=== PATIENT | female | born 1960 | race Caucasian/White ===

== ENCOUNTER 2016-12-25 20:59 | Emergency (ER) | payer OTHER ==
[~2016-12-25] VITALS: Ht 170.2 cm; Wt 58.0 kg
[~2016-12-25 20:59] MED LIST: FLUO-1 PO; MOBI15TA PO; NEUR300C PO
[2016-12-25 21:03] VITALS: BP 194/101; PULSE 88; RESP 16; TEMP 98.8; O2SAT 98
[2016-12-25] MEDS ORDERED: SIMETHICONE 125 MG CHEWABLE TAB PO ONE (21:45)
[2016-12-25] MEDS ORDERED: SODIUM CHLORID 0.9% 500 ML INJ 500 ML IV ONE (21:45)
[2016-12-25] MEDS ORDERED: SIME1CAP17 PO (21:46)
[2016-12-25] MEDS ORDERED: MAGNSOL2 PO (21:46)
--- NOTE | 2016-12-25 21:46 | PD ---
HPI Chief Complaint: GI Complaint Time Seen by Provider: 21:19 Travel History International Travel<30 days: No Contact w/Intl Traveler<30days: No Traveled to known affect area: No History of Present Illness HPI Is a 56 year-old woman who presents to the emergency department complaining of chest pain and belching. States that over the past days she's been under a lot of stress, working, with some fatigue. She had some palpitations which is common for her when she gets stressed. She has wasn't feeling quite right. Over the past day or so she started getting some pressure-like discomfort in her chest. She thought she was still stressed. She also has been having some constipation which is common for her. She did have an increased belching. She was given a take some magnesium citrate. She had a bowel movement today but only a small amount. Symptoms worsened while she was at home and so she went to an urgent care. They did an EKG which noted some lateral T-wave inversions and so they sent her to the emergency department. 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 SKIN: Focused skin assessment warm/dry. HEAD: Atraumatic. Normocephalic. EYES: Pupils equal and round. No scleral icterus. No injection or drainage. ENT: No nasal bleeding or discharge. Mucous membranes pink and moist. NECK: Trachea midline. No JVD. CARDIOVASCULAR: Regular rate and rhythm. No murmur appreciated. RESPIRATORY: No accessory muscle use. Clear to auscultation. Breath sounds equal bilaterally. GASTROINTESTINAL: Abdomen is flat and soft. She is occasionally belching during exam. She has no right upper quadrant tenderness. Negative Sullivan's. MUSCULOSKELETAL: No obvious deformities. Data Data Last Documented VS Vital Signs Date Time Temp Pulse Resp B/P Pulse Ox O2 Delivery O2 Flow Rate FiO2 12/25/16 21:32 18 12/25/16 21:03 98.8 88 194/101 98 Room Air Orders Electrocardiogram (12/25/16 ) Complete Blood Count With Diff (12/25/16 21:36) Comprehensive Metabolic Panel (12/25/16 21:36) Troponin I (12/25/16 21:36) Chest, Single Ap (12/25/16 ) Abdomen, Flat & Upright (12/25/16 ) Iv Access Insert/Monitor (12/25/16 21:36) Sodium Chlorid 0.9% 500 Ml Inj (Ns 500 M (12/25/16 21:45) Simethicone Chew (Phazyme Chew) (12/25/16 21:45) Labs Laboratory Tests Test 12/25/16 21:45 White Blood Count 7.7 TH/MM3 Red Blood Count 5.11 MIL/MM3 Hemoglobin 15.8 GM/DL Hematocrit 45.7 % Mean Corpuscular Volume 89.6 FL Mean Corpuscular Hemoglobin 31.0 PG Mean Corpuscular Hemoglobin 34.6 % Concent Red Cell Distribution Width 12.5 % Platelet Count 330 TH/MM3 Mean Platelet Volume 7.8 FL Neutrophils (%) (Auto) 47.0 % Lymphocytes (%) (Auto) 41.5 % Monocytes (%) (Auto) 7.8 % Eosinophils (%) (Auto) 2.7 % Basophils (%) (Auto) 1.0 % Neutrophils # (Auto) 3.6 TH/MM3 Lymphocytes # (Auto) 3.2 TH/MM3 Monocytes # (Auto) 0.6 TH/MM3 Eosinophils # (Auto) 0.2 TH/MM3 Basophils # (Auto) 0.1 TH/MM3 CBC Comment DIFF FINAL Differential Comment Sodium Level 136 MEQ/L Potassium Level 3.9 MEQ/L Chloride Level 99 MEQ/L Carbon Dioxide Level 29.6 MEQ/L Anion Gap 7 MEQ/L Blood Urea Nitrogen 8 MG/DL Creatinine 0.75 MG/DL Estimat Glomerular Filtration 79 ML/MIN Rate Random Glucose 92 MG/DL Calcium Level 9.1 MG/DL Total Bilirubin 0.4 MG/DL Aspartate Amino Transf 26 U/L (AST/SGOT) Alanine Aminotransferase 27 U/L (ALT/SGPT) Alkaline Phosphatase 97 U/L Troponin I LESS THAN 0.02 NG/ML Total Protein 8.0 GM/DL Albumin 4.2 GM/DL [facility] Medical Decision Making Medical Screen Exam Complete: Yes Emergency Medical Condition: Yes Interpretation(s) LABS: CBC is unremarkable. CMP is unremarkable. Troponin negative. Chest x-ray: No evidence of acute cardiopulmonary disease. Abdomen x-ray: No obstruction. Moderate stool in the right side of the colon. Differential Diagnosis My review of EKG: Normal sinus rhythm at a rate of 72, rightward axis, normal intervals, some lateral T-wave flattening in aVL and T-wave inversions V1 V2. Nonspecific. No definite evidence of acute ischemia. No old for comparison. LABS: Narrative Course Medical decision making 56 year-old woman with some left-sided pressure-like chest discomfort for the past day or so. She also some GI symptoms with belching and constipation. She had a splenectomy past but no other abdominal surgeries. She has no abdominal pain. No vomiting. She states her appetite is been relatively normal. I don' t think she has an obstruction. I don't think this is likely her heart. She does smoke, she has a family history of heart disease. We'll check labs, including troponin, we'll check a chest x-ray as well as a flat and upright abdominal x-ray. If workup negative, we'll recommend simethicone, and some magnesium citrate, and return for any worsening symptoms. Diagnosis Primary Impression: Chest pain Additional Impression: Constipation Additional Instructions: Take magnesium citrate as discussed for constipation. Use simethicone as needed. Return to the emergency department for any chest pain, or any other new or worsening symptoms. Med/Other Pt SpecificInfo: Prescription(s) given Scripts Simethicone 125 Mg [id number] Mg PO QID PRN (GAS RETENTION) #12 CAP Ref 0 Prov:Keshav Alvarez MD 12/25/16 Magnesium Citrate Liq 300 Ml [id number] Ml PO DIRECTED #1 BOTTLE Prov:Keshav Alvarez MD 12/25/16 Disposition: 01 DISCHARGE HOME Condition: Stable Keshav Alvarez MD December 25, 2016 21:46
[2016-12-25 21:54] LABS: AUTOMATED NEUTROPHIL # 3.6 TH/MM3 (1.8-7.7); BASOPHIL # 0.1 TH/MM3 (0-0.2); EOSINOPHIL # 0.2 TH/MM3 (0-0.4); EOSINOPHIL % 2.7 % (0.0-4.0); HEMATOCRIT 45.7 % (35.0-46.0); HEMO FLAGS DIFF FINAL; LYMPH % 41.5 % (9.0-44.0); LYMPHOCYTE # 3.2 TH/MM3 (1.0-4.8); MEAN CELL VOLUME 89.6 FL (80.0-100.0); MEAN CORPUSCULAR HGB CONC 34.6 % (32.0-36.0); MONO % 7.8 % (0.0-8.0); PLATELET COUNT 330 TH/MM3 (150-450); RED BLOOD COUNT 5.11 MIL/MM3 (4.00-5.30); RED CELL DISTRIBUTION WIDTH 12.5 % (11.6-17.2); WHITE BLOOD COUNT 7.7 TH/MM3 (4.0-11.0)
--- NOTE | 2016-12-25 22:21 | RADRPT ---
EXAM DATE/TIME: 12/25/2016 22:00 [facility] COMPARISON: No previous studies available for comparison. INDICATIONS : Chest pain MEDICAL HISTORY : None. SURGICAL HISTORY : Spleenectomy ENCOUNTER: Initial ACUITY: 2 days PAIN SCORE: 3/10 LOCATION: Bilateral chest FINDINGS: A single view of the chest demonstrates the lungs to be symmetrically aerated without evidence of mas s, infiltrate or effusion. The cardiomediastinal contours are unremarkable. Osseous structures are intact. CONCLUSION: No evidence of acute cardiopulmonary disease. Ja West MD on December 25, 2016 at 22:19 Board Certified Radiologist. This report was verified electronically.
--- NOTE | 2016-12-25 22:28 | RADRPT ---
EXAM DATE/TIME: 12/25/2016 22:01 [facility] COMPARISON: No previous studies available for comparison. INDICATIONS : Abdominal pain MEDICAL HISTORY : Total hip SURGICAL HISTORY : Spleenectomy ENCOUNTER: Initial ACUITY: 2 days PAIN SCORE: 4/10 LOCATION: Bilateral abdomen FINDINGS: Moderate stool seen in the colon, mainly right side. No small bowel or gastric distention. No free ai r. CONCLUSION: No obstruction. Moderate stool in the right side of the colon. Ja West MD on December 25, 2016 at 22:26 Board Certified Radiologist. This report was verified electronically.
[2016-12-25 22:29] LABS: ALKALINE PHOSPHATASE 97 U/L (45-117); ALT (GPT) 27 U/L (10-53); ANION GAP 7 MEQ/L (5-15); AST (GOT) 26 U/L (15-37); BICARBONATE 29.6 MEQ/L (21.0-32.0); BLOOD UREA NITROGEN 8 MG/DL (7-18); CHLORIDE 99 MEQ/L (98-107); GLOMERULAR FILTRATION RATE 79 ML/MIN (>89); POTASSIUM 3.9 MEQ/L (3.5-5.1); SODIUM (NA) 136 MEQ/L (136-145); TOTAL BILIRUBIN ADULT 0.4 MG/DL (0.2-1.0)
[2016-12-25 22:52] VITALS: BP 125/68; PULSE 70; RESP 12; O2SAT 98
--- NOTE | 2016-12-26 10:05 | EKG ---
Date Performed: 12/25/2016 Time Performed: 21:25:10 PTAGE: 56 years EKG: Sinus rhythm MARKED RIGHT AXIS DEVIATION ABNORMAL ECG NO PREVIOUS TRACING DOCTOR: Krishna Martinez Interpretating Date/Time 12/26/2016 10:03:05
== END 2016-12-25 23:32 | disposition home or self-care (01) ==
LOC: NEPC 20:59
DX: R07.9 Chest pain, unspecified (principal); K59.00 Constipation, unspecified
CPT/HCPCS: 71010; 74020; 80053; 84484; 85025; 93005; 99285; J7040

== ENCOUNTER 2017-11-06 23:32 | Emergency (ER) | payer OTHER ==
[~2017-11-06] VITALS: Ht 165.1 cm; Wt 72.0 kg
[~2017-11-06 23:32] MED LIST changes: -FLUO-1 PO; +MAGNSOL2 PO; -MOBI15TA PO; -NEUR300C PO; +SIME1CAP17 PO
[2017-11-07 00:30] VITALS: BP 179/85; PULSE 71; RESP 16; TEMP 97.6; O2SAT 98
[2017-11-07] MEDS ORDERED: PROCHLORPERAZINE INJ 10 MG/2 ML VIAL IV PUSH ONE (01:45)
[2017-11-07] MEDS ORDERED: diphenhydrAMINE HCL 50 MG/ML VIAL IV PUSH ONE (01:45)
[2017-11-07] MEDS ORDERED: ACETAMINOPHEN 325 MG TAB PO ONE (01:45)
[2017-11-07 02:45] VITALS: BP 156/71; PULSE 77; RESP 16; O2SAT 99
[2017-11-07 02:57] LABS: AUTOMATED NEUTROPHIL # 3.9 TH/MM3 (1.8-7.7); BASOPHIL # 0.1 TH/MM3 (0-0.2); BASOPHIL % 1.1 % (0.0-2.0); EOSINOPHIL # 0.3 TH/MM3 (0-0.4); EOSINOPHIL % 3.1 % (0.0-4.0); HEMATOCRIT 41.4 % (35.0-46.0); HEMOGLOBIN 14.5 GM/DL (11.6-15.3); LYMPH % 40.3 % (9.0-44.0); LYMPHOCYTE # 3.3 TH/MM3 (1.0-4.8); MEAN CELL VOLUME 92.2 FL (80.0-100.0); MEAN CORPUSCULAR HEMOGLOBIN 32.2 PG (27.0-34.0); MEAN CORPUSCULAR HGB CONC 34.9 % (32.0-36.0); MEAN PLATELET VOLUME 7.5 FL (7.0-11.0); MONO % 7.7 % (0.0-8.0); MONOCYTE # 0.6 TH/MM3 (0-0.9); NEUT % 47.8 % (16.0-70.0); PLATELET COUNT 263 TH/MM3 (150-450); RED BLOOD COUNT 4.49 MIL/MM3 (4.00-5.30); RED CELL DISTRIBUTION WIDTH 12.7 % (11.6-17.2); WHITE BLOOD COUNT 8.1 TH/MM3 (4.0-11.0)
[2017-11-07 03:17] LABS: ALKALINE PHOSPHATASE 73 U/L (45-117); TOTAL BILIRUBIN ADULT 0.3 MG/DL (0.2-1.0); TOTAL PROTEIN 7.5 GM/DL (6.4-8.2)
[2017-11-07 03:20] LABS: ALBUMIN 3.9 GM/DL (3.4-5.0); ALT (GPT) 26 U/L (10-53); AST (GOT) 31 U/L (15-37); BICARBONATE 30.5 MEQ/L (21.0-32.0); BLOOD UREA NITROGEN 7 MG/DL (7-18); CALCIUM 8.6 MG/DL (8.5-10.1); CHLORIDE 102 MEQ/L (98-107); CREATININE 0.58 MG/DL (0.50-1.00); GLOMERULAR FILTRATION RATE 107 ML/MIN (>89); GLUCOSE,RANDOM 101 MG/DL (74-106); SODIUM (NA) 139 MEQ/L (136-145)
[2017-11-07] MEDS ORDERED: TRAM50TA PO (05:18)
--- NOTE | 2017-11-07 05:18 | PD ---
HPI Chief Complaint: Headache Time Seen by Provider: 01:12 Travel History International Travel<30 days: No Contact w/Intl Traveler<30days: No Traveled to known affect area: No History of Present Illness HPI Patient is a 48-year-old female who comes in complaining of a headache. She says she has history of ITP and she is concerned that her counts are low. She says on Wednesday she was hit in the head by a steel beam while working into work. She says she has had a headache since then. She says she went to the [facility] and was discharged home. She says she is tried taking Advil for the pain without relief. She says she has some dizziness. She denies nausea or vomiting. She denies blurred vision. She denies fever chills. Severity is mild to moderate. PFSH Past Medical History Blood Disorders: Yes (ITP) Depression: Yes Diminished Hearing: No Musculoskeletal: Yes (back and sciatica pain) Immunizations Current: Yes Tetanus Vaccination: Unknown Influenza Vaccination: Yes Menopausal: Yes Past Surgical History Endocrine Surgery: Yes (speenectomy) Other Surgery: Yes (SPLENECTOMY) Social History Alcohol Use: Yes (SPECIAL OCCAS) Tobacco Use: Yes (/ ppd) Substance Use: No Allergies-Medications (Allergen,Severity, Reaction): Coded Allergies: Sulfa (Sulfonamide Antibiotics) (Unverified Allergy, Severe, HIVES, ) Reported Meds & Prescriptions Reported Meds & Active Scripts Active Simethicone 125 Mg Cap 125 Mg PO QID PRN Magnesium Citrate Liq (Magnesium Citrate) 300 Ml Liq 300 Ml PO DIRECTED Review of Systems Except as stated in HPI: all other systems reviewed are Neg General / Constitutional: No: Fever, Chills Eyes: No: Blurred Vision HENT: Positive: Headaches, Lightheadedness Cardiovascular: No: Chest Pain or Discomfort Respiratory: No: Shortness of Breath Gastrointestinal: No: Nausea, Vomiting Musculoskeletal: No: Myalgias Skin: No Rash, No Change in Pigmentation Neurologic: No: Weakness, Dizziness, Syncope Physical Exam Narrative GENERAL: Awake and alert, in no acute distress. SKIN: Focused skin assessment warm/dry. HEAD: Atraumatic. Normocephalic. EYES: Pupils equal and round. No scleral icterus. Extraocular movements intact. ENT: Mucous membranes pink and moist. NECK: Trachea midline. No JVD. CARDIOVASCULAR: Regular rate and rhythm. No murmur appreciated. RESPIRATORY: No accessory muscle use. Clear to auscultation. Breath sounds equal bilaterally. GASTROINTESTINAL: Abdomen soft, non-tender, nondistended. MUSCULOSKELETAL: No obvious deformities. No clubbing. No cyanosis. No edema. NEUROLOGICAL: Awake and alert. No obvious cranial nerve deficits. Motor grossly within normal limits. Normal speech. PSYCHIATRIC: Appropriate mood and affect; insight and judgment normal. Data Data Last Documented VS Vital Signs Date Time Temp Pulse Resp B/P (MAP) Pulse Ox O2 Delivery O2 Flow Rate FiO2 11/07/17 02:45 77 16 156/71 (99) 99 Room Air 11/07/17 00:30 97.6 Orders Orders Iv Access Insert/Monitor (11/07/17 01:31) Complete Blood Count With Diff (11/07/17 01:31) Comprehensive Metabolic Panel (11/07/17 01:31) Act Partial Throm Time (Ptt) (11/07/17 01:31) Prothrombin Time / Inr (Pt) (11/07/17 01:31) Ct Brain W/O Iv Contrast(Rout) (11/07/17 ) Acetaminophen (Tylenol) (11/07/17 01:45) Diphenhydramine Inj (Benadryl Inj) (11/07/17 01:45) Prochlorperazine Inj (Compazine Inj) (11/07/17 01:45) Labs Laboratory Tests Test 11/07/17 02:36 White Blood Count 8.1 TH/MM3 Red Blood Count 4.49 MIL/MM3 Hemoglobin 14.5 GM/DL Hematocrit 41.4 % Mean Corpuscular Volume 92.2 FL Mean Corpuscular Hemoglobin 32.2 PG Mean Corpuscular Hemoglobin Concent 34.9 % Red Cell Distribution Width 12.7 % Platelet Count 263 TH/MM3 Mean Platelet Volume 7.5 FL Neutrophils (%) (Auto) 47.8 % Lymphocytes (%) (Auto) 40.3 % Monocytes (%) (Auto) 7.7 % Eosinophils (%) (Auto) 3.1 % Basophils (%) (Auto) 1.1 % Neutrophils # (Auto) 3.9 TH/MM3 Lymphocytes # (Auto) 3.3 TH/MM3 Monocytes # (Auto) 0.6 TH/MM3 Eosinophils # (Auto) 0.3 TH/MM3 Basophils # (Auto) 0.1 TH/MM3 CBC Comment DIFF FINAL Differential Comment Prothrombin Time 10.0 SEC Prothromb Time International Ratio 1.0 RATIO Activated Partial Thromboplast Time 26.5 SEC Blood Urea Nitrogen 7 MG/DL Creatinine 0.58 MG/DL Random Glucose 101 MG/DL Total Protein 7.5 GM/DL Albumin 3.9 GM/DL Calcium Level 8.6 MG/DL Alkaline Phosphatase 73 U/L Aspartate Amino Transf (AST/SGOT) 31 U/L Alanine Aminotransferase (ALT/SGPT) 26 U/L Total Bilirubin 0.3 MG/DL Sodium Level 139 MEQ/L Potassium Level 3.8 MEQ/L Chloride Level 102 MEQ/L Carbon Dioxide Level 30.5 MEQ/L Anion Gap 7 MEQ/L Estimat Glomerular Filtration Rate 107 ML/MIN MDM Medical Decision Making Medical Screen Exam Complete: Yes Emergency Medical Condition: Yes Medical Record Reviewed: Yes Differential Diagnosis Migraine versus tension headache versus concussion Narrative Course Patient is a 56 year old female who comes in complaining of headache. Exam shows no neurologic abnormalities. IV established, labs sent. Labs show no acute abnormalities. Platelets are over 200. Patient given IVF, Tylenol, Compazine, Benadryl. She is sleeping comfortably. Reassured. Given prescription for pain medicine. Advised to follow up with her doctors. Advised to return to the ED as needed for any worsening symptoms. Diagnosis Primary Impression: Headache Qualified Codes: R51 - Headache Patient Instructions: General Instructions, Head Injury (ED) Additional Instructions: Take Tylenol or pain medicine as needed for pain. Follow-up with your doctor. Return to the ED as needed for any worsening symptoms. Scripts Tramadol (Tramadol) 50 Mg Tab 50 MG PO Q6H Y for PAIN, #10 TAB 0 Refills Prov: Tisha Riddle MD 11/07/17 Disposition: 01 DISCHARGE HOME Condition: Stable Tisha Riddle MD Nov 07, 2017 05:18
--- NOTE | 2017-11-07 06:05 | RADRPT ---
EXAM DATE/TIME: 11/07/2017 05:35 [facility] COMPARISON: No previous studies available for comparison. INDICATIONS : Headache. RADIATION DOSE: 56.35 CTDIvol (mGy) MEDICAL HISTORY : Cardiovascular disease. Hypertension. Atrial fibrillation SURGICAL HISTORY : Appendectomy. section.Tonsillectomy. ENCOUNTER: Initial ACUITY: 1 day PAIN SCALE: 7/10 LOCATION: cranial TECHNIQUE: Multiple contiguous axial images were obtained of the head. Using automated exposure control and adj ustment of the mA and/or kV according to patient size, radiation dose was kept as low as reasonably a chievable to obtain optimal diagnostic quality images. DICOM format image data is available electro nically for review and comparison. FINDINGS: CEREBRUM: The ventricles are normal for age. No evidence of midline shift, mass lesion, hemorrhage or acute in farction. No extra-axial fluid collections are seen. POSTERIOR FOSSA: The cerebellum and brainstem are intact. The 4th ventricle is midline. The cerebellopontine angle i s unremarkable. EXTRACRANIAL: The visualized portion of the orbits is intact. SKULL: The calvaria is intact. No evidence of skull fracture. CONCLUSION: Negative exam. Jamshid Johns MD on November 07, 2017 at 6:03 Board Certified Radiologist. This report was verified electronically.
[2017-11-07 06:29] VITALS: BP 142/71; PULSE 60; RESP 14; O2SAT 98
[2017-11-07 07:13] VITALS: BP 131/87; PULSE 65; RESP 18; O2SAT 97
== END 2017-11-07 08:52 | disposition home or self-care (01) ==
LOC: NEPE 23:32
DX: R51 Headache (principal); D69.3 Immune thrombocytopenic purpura; F32.9 Major depressive disorder, single episode, unspecified; F17.200 Nicotine dependence, unspecified, uncomplicated
CPT/HCPCS: 70450; 80053; 85025; 85610; 85730; 96374; 99284; J0780